=== PATIENT | male | born 1955 | race Caucasian/White ===

== ENCOUNTER 2017-10-20 18:42 | Emergency (ER) | payer BC | END 2017-10-20 19:45 | disposition left against medical advice (07) | LOC: MADERS 18:42 | DX: Z53.21 Procedure and treatment not carried out due to patient leaving prior to being seen by health care provider (principal) ==

== ENCOUNTER 2022-07-15 09:39 | Outpatient (CLI) | payer MEDICARE, OTHER | END 2022-07-15 09:40 | disposition home or self-care (01) | LOC: MADULT 09:39 | PROVIDERS: ATTEND Physician Assistant Medical | DX: R79.89 Other specified abnormal findings of blood chemistry (principal) | CPT/HCPCS: 76705 ==

== ENCOUNTER 2023-02-05 13:38 | Outpatient (CLI) | payer OTHER | END 2023-02-05 13:39 | disposition home or self-care (01) | LOC: MADRAD 13:38 | PROVIDERS: ATTEND Internal Medicine | DX: I10 Essential (primary) hypertension (principal) | CPT/HCPCS: 71046 ==

== ENCOUNTER 2023-04-18 04:56 | Emergency (ER) | payer OTHER ==
[2023-04-18] MEDS ORDERED: Mag-Al Plus 1200 MG/1200 MG/120 MG/30 ML UDCUP ONE (05:27)
[2023-04-18] MEDS ORDERED: Lidocaine Viscous Sol 2% 15 ml UD Cup ONE (05:27)
[2023-04-18 05:46] LABS: Eosinophils 1 % (0-10); Hematocrit 50.5 % (42.0-52.0); Lymphocytes 11 % (21-51); MDiff Complete? YES; Mean Corpuscular HGB CONC 31.7 g/dL (32.0-36.0); Mean Corpuscular Hemoglobin 30.3 pg (27.0-31.0); Mean Corpuscular Volume 95.5 fl (78.0-98.0); Monocytes 8 % (0-10); Neutrophil 80 % (42-75); Platelet Count 273 10x3/uL (130-400); RBC Distribution Width 13.6 % (11.5-14.5); Red Blood Cell (RBC) Count 5.29 mill/uL (4.70-6.10); White Blood Cell (WBC) Count 10.3 10x3/uL (4.8-10.8)
[2023-04-18 06:00] LABS: Anion Gap 18 mmol/L (10-20); BUN (Urea Nitrogen) 14 mg/dL (8.4-25.7); Calc. Creatinine Clearance 0 mL/min (70-130); Calcium 10.1 mg/dL (7.8-10.44); Carbon Dioxide 23 mmol/L (23-31); Chloride 100 mmol/L (98-107); Estimated GFR 94; Glucose 110 mg/dL (80-115); Potassium 3.8 mmol/L (3.5-5.1); Sodium 137 mmol/L (136-145)
== END 2023-04-18 08:13 | disposition home or self-care (01) ==
LOC: MADERS 04:56
DX: R13.10 Dysphagia, unspecified (principal); F17.210 Nicotine dependence, cigarettes, uncomplicated
CPT/HCPCS: 36415; 70492; 80048; 85025

== ENCOUNTER 2024-07-15 15:18 | Outpatient (CLI) | payer OTHER | END 2024-07-15 15:19 | disposition home or self-care (01) | LOC: MADCT 15:18 | PROVIDERS: ATTEND Registered Nurse | DX: H53.2 Diplopia (principal); H57.02 Anisocoria; I65.29 Occlusion and stenosis of unspecified carotid artery | CPT/HCPCS: 70450 ==